=== PATIENT | male | born 1960 | race Caucasian/White ===

== ENCOUNTER 2018-03-20 23:02 | Emergency (ER) | payer MEDICAID, MEDICARE, OTHER ==
[~2018-03-20] VITALS: Ht 200.7 cm; Wt 104.3 kg
--- NOTE | 2018-03-20 23:12 | ER.PDOC ---
General Chief Complaint: Requesting Medical Care Stated Complaint: LEG INJURY/LAC Time seen by MD: 23:05 Source: patient Exam Limitations: no limitations History of Present Illness Initial Comments Pt tripped over an appliance and injured the right anterior leg, which bled profusely until he got here, bleeding has stopped Onset: just prior to arrival Recent Injury: Yes Where: home Severity: moderate Exacerbated By: walking movement Relieved By: nothing Allergies: Coded Allergies: Penicillins (Verified Allergy, Unknown, Nausea, 04/06/16) Past Medical History Surgical History: knee Review of Systems Constitutional: no symptoms reported EENTM: no symptoms reported Respiratory: no symptoms reported Cardiovascular: no symptoms reported Gastrointestinal: no symptoms reported Genitourinary: no symptoms reported Musculoskeletal: no symptoms reported Skin: see HPI Psychiatric/Neurological: no symptoms reported Physical Exam General Appearance: Alert, No Apparent Distress Lower Extremity: tenderness, swelling (laceration 1.5 cm on anterior right leg) Joint Exam: joints nml, nml ROM, nml gait/weight bearing Vascular: no vascular compromise, pulses full/equal Neuro/Psych: sensation nml, motor nml, oriented x3, CN's nml as tested, mood/ affect nml Skin: color nml, warm/dry, no rash Back/Neck: nml inspection EENT: eyes inspection nml, ENT inspection nml, pharynx nml Respiratory: no resp distress, breath sounds nml CVS: reg rate & rhythm, heart sounds nml Abdomen: non-tender, no organomegaly, no bruit/mass ED LACERATION WOUND REPAIR # of Wounds/Lacerations Presen: 1 Wound Location & Length (Requi: 2 Wound Length (cm): 2 Wound cleaned: betadine Distal NVT: neuro intact, vasc intact Anesthesia type: local Anesthesia: 1% Lidocaine, Lidocaine w/ Epi Volume Anesthetic (ccs): 10 Wound's Depth, Shape: superficial, irregular, subcutaneous Wound Explored: no foreign body removed Tendon Intact: Yes Wound Debrided: moderate Wound Repaired With: sutures Suture Size/Type: 3:0, ethilon Suture Style: interupted Number of Sutures: 4 Layer Closure?: No Departure Time of Disposition: 23:35 Disposition: 01 HOME, SELF-CARE Impression: Primary Impression: Laceration of leg not thigh, right Condition: Stable Patient Instructions: Laceration Care, Adult, [id number] Referrals: PCP,UNKNOWN (PCP) PRIMARY CARE PROVIDER Duration or Time Spent with Pa: 20 HARDY ERICKSON MD Mar 20, 2018 23:12
[2018-03-20 23:18] VITALS: BP 160/107
[2018-03-20] MEDS ORDERED: XYLOCAINE 2%-EPI 1:100,000 ONE (23:18)
[2018-03-20] MEDS ORDERED: TRIPLE ANTIBIOTIC OINTMENT TP ONE (23:32)
--- NOTE | 2018-03-20 23:40 | NUR ---
SUTURES DR. ERICKSON PLACED 4 SUTURES AT BEDSIDE ON RIGHT REEVES OF LOWER LEG.
[2018-03-21 00:07] VITALS: BP 160/107
== END 2018-03-20 23:45 | disposition home or self-care (01) ==
LOC: ER 23:02
DX: S81.811A Laceration without foreign body, right lower leg, initial encounter (principal); Z88.0 Allergy status to penicillin; W18.09XA Striking against other object with subsequent fall, initial encounter; Y93.89 Activity, other specified; Y92.098 Other place in other non-institutional residence as the place of occurrence of the external cause; Y99.8 Other external cause status
CPT/HCPCS: 99284; 12001

== ENCOUNTER 2018-05-06 13:02 | Emergency (ER) | payer MEDICARE ==
[~2018-05-06] VITALS: Ht 198.1 cm; Wt 97.5 kg
[2018-05-06 13:28] VITALS: BP 178/80
--- NOTE | 2018-05-06 13:40 | ER.PDOC ---
General Chief Complaint: General Complaint Stated Complaint: HBP TRAVEL OUT OF US: No Time seen by MD: 14:00 Source: patient Exam Limitations: no limitations History of Present Illness Timing/Duration: 1 week Severity: mild Modifying Factors: improves with medication Associated Symptoms: denies symptoms Allergies: Coded Allergies: Penicillins (Verified Allergy, Unknown, Nausea, 04/06/16) Past Medical History Medical History: arrhythmia, CVA/TIA/stroke, cardiac problems, hypertension Surgical History: knee Social History Smoking: less than 1 pack/day Alcohol Use: none Drug Use: none Reviewed Nursing Reviewed: Vital Signs, Abn. 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 NML as Tested Skin: Normal Color Lymphatic: No Adenopathy Course Sepsis Screening Results: Posi: POSITIVE SEPSIS RISK Vitals & review Data Vital Sign - Last 24 Hours 03/21/18 05/06/18 05/06/18 05/06/18 00:07 13:24 13:24 13:28 Temp 97.9 97.9 97.9 97.9 97.9 97.9 Pulse 90 67 67 67 Resp 17 17 17 B/P (MAP) 178/80 (112) Pulse Ox 100 100 O2 Delivery Room Air Room Air Departure Time of Disposition: 14:33 Disposition: 01 HOME, SELF-CARE Impression: Primary Impression: Hypertension Condition: Stable Referrals: PCP,UNKNOWN (PCP) PRIMARY CARE PROVIDER Duration or Time Spent with Pa: 1 HR ARLETH WILSON MD May 06, 2018 13:40
--- NOTE | 2018-05-06 13:45 | PCM.EKG ---
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
[2018-05-06 13:51] LABS: BASOPHIL # 0.1 10^3/uL (0.0-0.1); BASOPHIL % 0.6 % (0.0-0.2); EOSINOPHIL # 0.2 10^3/uL (0.0-0.2); EOSINOPHIL % 1.9 % (0.0-5.0); HEMOGLOBIN 16.2 g/dL (13.9-16.3); LYMPHOCYTES # 1.8 10^3/uL (1.0-4.8); LYMPHOCYTES % 23.5 % (24.0-44.0); MEAN CELL HGB 32.5 pg (26-34); MEAN CELL HGB CONCENTRATION 34.3 g/dL (33-37); MEAN CORP VOLUME 94.8 fL (78-100); MEAN PLATELET VOLUME 9.4 fL (7.8-11.0); MONOCYTES # 0.8 10^3/uL (0.3-0.8); MONOCYTES % 10.4 % (5.0-12.0); NEUTROPHIL # 4.9 10^3/uL (1.8-7.7); NEUTROPHILS % 63.5 % (41.0-85.0); RED CELL DISTRIBUTION WIDTH 13.8 % (11.5-14.5); WHITE BLOOD CELL 7.8 10^3/uL (4.5-11.0)
[2018-05-06] MEDS ORDERED: CATAPRES PO STA (14:14)
[2018-05-06 14:16] LABS: ALANINE AMINOTRANSFERASE(ML) 25 U/L (12-78); ALKALINE PHOSPHATASE 136 U/L (50-136); ASPARTATE AMINO TRANSFERASE 22 U/L (0-35); CALCIUM 9.4 mg/dL (8.4-10.5); CARBON DIOXIDE 30.1 mmol/L (20.0-32); GLUCOSE 96 mg/dL (70-110)
--- NOTE | 2018-05-06 14:16 | NUR ---
TESSIE PT CALLED RT SYLVIA, TO ROOM AND STATED THAT HE STATED " TAKE ALL THIS SHIT OFF OF HIM". PT WALKED TO NURSE'S STATION WANTING ARMBAND OFF. JESSICA Loev, CUT PT ARMBAND OFF AND LEFT THE ER UPSET
== END 2018-05-06 14:16 | disposition home or self-care (01) ==
LOC: ER 13:02
DX: I10 Essential (primary) hypertension (principal); R79.1 Abnormal coagulation profile; F17.210 Nicotine dependence, cigarettes, uncomplicated; Z86.73 Personal history of transient ischemic attack (TIA), and cerebral infarction without residual deficits; Z88.0 Allergy status to penicillin; Z98.890 Other specified postprocedural states
CPT/HCPCS: 36415; 80053; 82550; 82553; 83880; 84484; 85025; 85379; 85610; 85730; 86677; 93005; 99285